=== PATIENT | female | born 1935 | race Caucasian/White ===

== ENCOUNTER 2020-02-02 12:47 | Inpatient (IN) | payer OTHER ==
[~2020-02-02] VITALS: Ht 157.5 cm; Wt 59.9 kg
--- NOTE | 2020-02-02 12:54 | NUR ---
DR Charles at the bedside for MSE.
[2020-02-02 13:17] LABS: BASOPHILS # (AUTO) 0.1 K/uL (0.0-8.0); EOSINOPHILS # (AUTO) 0.1 K/uL (0.0-0.7); EOSINOPHILS % (AUTO) 1.7 % (0.0-7.0); HEMATOCRIT 44.6 % (31.2-41.9); HEMOGLOBIN 14.5 g/dL (10.9-14.3); LYMPHOCYTES # (AUTO) 0.8 K/uL (20.0-40.0); LYMPHOCYTES % (AUTO) 12.1 % (20.5-51.5); MEAN CORPUSCULAR HEMOGLOBIN 29.1 uug (24.7-32.8); MEAN CORPUSCULAR HGB CONC 33 g/dL (32.3-35.6); MEAN CORPUSCULAR VOLUME 89.5 fL (75.5-95.3); MONOCYTES # (AUTO) 0.4 K/uL (2.0-10.0); MONOCYTES % (AUTO) 6.6 % (0.0-11.0); NEUTROPHILS # (AUTO) 5.3 K/uL (1.8-8.9); NEUTROPHILS % (AUTO) 78.6 % (38.5-71.5); PLATELET COUNT (AUTO) 174 K/uL (179-408); RED BLOOD CELL COUNT(AUTO) 4.99 MIL/uL (3.63-4.92); WHITE BLOOD COUNT (AUTO) 6.8 K/uL (3.8-11.8)
[2020-02-02 13:24] LABS: CARBON DIOXIDE 29 mmol/L (21-32); CHLORIDE 104 mmol/L (98-107); CREATININE 0.9 mg/dL (0.6-1.3); GLUCOSE 108 mg/dL (74-106); POTASSIUM 3.6 mmol/L (3.5-5.1); UREA NITROGEN, BLOOD 12 mg/dL (7-18)
[2020-02-02 13:30] LABS: ACETAMINOPHEN < 2.0 ug/mL (10-30); ALANINE AMINOTRANSFERASE 11 U/L (14-59); ALKALINE PHOSPHATASE 99 U/L (50-136); ASPARTATE AMINOTRANSFERASE 19 U/L (15-37); BILIRUBIN,DIRECT 0.3 mg/dL (0.0-0.2); BILIRUBIN,TOTAL 1.3 mg/dL (0.2-1.0); TOTAL PROTEIN, SERUM 6.7 g/dL (6.4-8.2)
[2020-02-02 13:31] LABS: ETHANOL < 3 MG/DL (0-0)
--- NOTE | 2020-02-02 13:33 | NUR ---
Lunch tray provided. Pt ate w/ moderate appetite.
[2020-02-02 14:23] LABS: *BILIRUBIN,URIN NEGATIVE (NEGATIVE); *BLOOD, URINE NEGATIVE (NEGATIVE); *COLOR,URINE YELLOW (YELLOW); *KETONES,URINE TRACE (NEGATIVE); *UROBILINOGEN,URINE 0.2 E.U./dl (NORMAL); LEUKOCYTE ESTERASE ,URINE 1+ (NEGATIVE); NITRITE, URINE NEGATIVE (NEGATIVE); PH,URINE 7.5 (5.0-8.0); UGLUCOSE NEGATIVE (NEGATIVE)
[2020-02-02 14:24] LABS: *CLARITY,URINE HAZY (CLEAR)
[2020-02-02 14:28] LABS: RBC,URINE 0-3 /HPF (0-3)
[2020-02-02 14:30] LABS: BACTERIA,URINE FEW /HPF (NONE SEEN); SQUAMOUS EPITHELIAL CELL,UR MODERATE /HPF (NONE SEEN)
[2020-02-02 14:53] LABS: *AMPHETAMINE, URINE NEGATIVE (NEGATIVE); *BARBITURATE, URINE NEGATIVE (NEGATIVE); *CANNABINOID, URINE NEGATIVE (NEGATIVE); *COCCAINE, URINE NEGATIVE (NEGATIVE); *OPIATE, URINE NEGATIVE (NEGATIVE); *PHENCYCLIDINE SCREEN,URINE NEGATIVE (NEGATIVE)
[2020-02-02] MEDS ORDERED: MAGNESIUM HYDROXIDE 30 ML LIQUID UDC PO PRN (15:45)
[2020-02-02] MEDS ORDERED: MAG HYDROX/AL HYDROX/SIMETH 30 ML LIQUID UDC PO PRN (15:45)
[2020-02-02] MEDS ORDERED: ACETAMINOPHEN 325 MG TABLET PO PRN (15:45)
--- NOTE | 2020-02-02 16:25 | NUR ---
face to face assessment done with the patien. pt presents no harm to self or others. physical assessment done. skin intact. pt continues to be confused. safety precautions implemented. pt place on a 5150 for being gravely disabled. belongings checked and list placed on chart. MD psychiatrist aware of patient being on the unit. admission orders placed.
[2020-02-02 16:50] VITALS: BP 149/68
--- NOTE | 2020-02-02 20:19 | NUR ---
Pt was restless and anxious, attempted to administer Ativan 0.5mg, Pt refused. Will re attempt. business systems developer aware.
[2020-02-02 20:34] VITALS: BP 145/68
[2020-02-02] MEDS: LORAZEPAM 0.5 MG TABLET PO PRN (23:09)
[2020-02-02] MEDS: CEphaleXIN 500 MG CAPSULE PO SCH (23:20)
--- NOTE | 2020-02-03 01:20 | NUR ---
Ativan 0.5mg administered at 2309. Pt was put to bed at 2315 and fell asleep. At approximately 0100 Pt woke up and was attempting to crawl out of bed. This typewriter assembler and FREEZER TUNNEL OPERATOR attempted to assist Pt and she became combative, kicking, screaming, and attempting to bite staff. Pt refused to listen to instruction for safety and refused redirection. plant machinist came to assist in helping Pt into radha chair for Pt and staff safety. Pt eventually calmed and is resting comfortably in the hallway under close staff supervision at this time.
--- NOTE | 2020-02-03 06:03 | NUR ---
Pt awoke at 0400 shouting for her mom and crying, angry and aggressive when redirection provided. Snacks and drinks offered and refused. Pt agreed to a shower, and she was cooperative when shower was given by 2 staff. Pt placed in radha chair for safety at this time, Pt now resting comfortably.
[2020-02-03 07:30] VITALS: BP 140/69
[2020-02-03 08:29] LABS: BILIRUBIN,TOTAL 1.2 mg/dL (0.2-1.0)
[2020-02-03] MEDS: CEphaleXIN 500 MG CAPSULE PO SCH ×2 (08:48→20:09)
--- NOTE | 2020-02-03 09:26 | NUR ---
Received patient this am yelling and restless.Totally confused , reorientation attempted with little results. Assisted with breakfast and patient needed a lot of encouragement to take medications. Patient gait unsteady and supervision provided with ambulation. VS stable. Continuing to monitor for safety. Patient noted to be combative and aggressive.
--- NOTE | 2020-02-03 13:21 | NUR ---
ESTEPHANIA Initial Discharge Plan: Patient currently lives at home with her Yfn Reeves ([phone]). Patient will be returning home upon discharge. ESTEPHANIA will continue to work with patient, family, and MD to ensure a safe and proper discharge plan.
--- NOTE | 2020-02-03 14:15 | NUR ---
ESTEPHANIA Family Contact: ESTEPHANIA spoke with patient's Yfn Reeves ([phone]) regarding treatment plan and patient's discharge plan. Yfn was concerned that due to their spiritism belief, [employer], the patient will not be compliant with taking her medications as they do not believe in such. ESTEPHANIA explained the process of a Riese if the patient refuses medications in the mental health unit. Yfn was understanding and hopes the patient will be complaint with her overall treatment. Yfn wants the patient to return back home upon discharge. ESTEPHANIA also spoke with patient's niece, Eve Aidaaj ([phone]) regarding patient's treatment and discharge plan. Yfn stated he wants Eve informed and involved. Eve wanted updated regarding patient medical status, this proposal writer transferred her to the nursing station for updates.
[2020-02-03 16:00] VITALS: BP 141/59
[2020-02-03] MEDS: busPIRone 5 MG TABLET PO SCH (17:00)
--- NOTE | 2020-02-03 17:40 | NUR ---
Patient continues to non compliant and refused to take medication this PM. Assisted to bathroom earlier and patient became combative. Continuing to monitor for safety , and encourage medication compliance. Patient remains confused, reorientation given.
[2020-02-03] MEDS: LORAZEPAM 0.5 MG TABLET PO PRN (20:09)
[2020-02-03 20:16] VITALS: BP 157/75
[2020-02-03] MEDS: DOCUSATE SODIUM 100 MG CAPSULE PO SCH (21:00)
[2020-02-03] MEDS: ATORVASTATIN 10 MG TABLET PO SCH (21:00)
[2020-02-03] MEDS ORDERED: QUETIAPINE FUMARATE 25 MG TABLET PO SCH (21:00)
--- NOTE | 2020-02-03 21:56 | NUR ---
GPS/ RECEIVED PT UP IN [place]-CHAIR. PT CONFUSE, RESTLESS, AND UNABLE TO COMPREHEND ANYTHING MENTALLY. PT NOTED REMOVING HER CLOTHING AND YELLING, KICKING. DISTRACTIVE INTERVENTION NOT EFFECTIVE, PRN ATIVAN 0.5MG GIVEN. PT HAVING VISUAL HALLUCINATION, TALKING TO PEOPLE WITH EYES CLOSE. PT UNABLE TO REDIRECT OR REINFORCE TO REALITY. ROUTINE MEDICATIONS GIVEN BUT PT TOOK ONLY THE ATB MED AND REFUSED THE REST.OFFER WATER BUT TOOK ONLY A LITTLE. PT IS UNCOOPERATIVE WITH MEDS AND CARE. Q/15 MINS HEAD COUNT WILL BE DONE AND PT STILL AWAKE.
[2020-02-04] MEDS: TEMAZEPAM 7.5 MG CAPSULE PO PRN (01:41)
--- NOTE | 2020-02-04 06:49 | NUR ---
PT WAS UP IN NIMCO-CHAIR, UNABLE TO STAY IN BED, AND FREQUENTLY TRYING TO GET OUT OF CHAIR. RESTORIL WAS GIVEN AT 0141. AND PT SLEPT UP TO 3HRS ON AND OFF. PT WAS YELLING AND CRYING, PRAYING AND CALLING ON NAMES. MENTALLY UNABLE TO REDIRECT TO REALITY.
[2020-02-04 07:30] VITALS: BP 140/66
[2020-02-04] MEDS: CEphaleXIN 500 MG CAPSULE PO SCH (09:00)
[2020-02-04] MEDS: busPIRone 5 MG TABLET PO SCH ×2 (09:00→16:52)
[2020-02-04] MEDS: DOCUSATE SODIUM 100 MG CAPSULE PO SCH ×2 (09:00→20:18)
--- NOTE | 2020-02-04 09:33 | NUR ---
ESTEPHANIA Family Contact: ESTEPHANIA spoke with patient's Yfn Reeves ([phone]) who was inquiring about what will happen now that the patient has refused some medications today. This check writer informed that the psychiatrist will be in to see her today and make a decision. This check writer will update family as soon as there is new information from the doctor.
--- NOTE | 2020-02-04 09:36 | NUR ---
ESTEPHANIA UR Note: Authorization # [id number] ESTEPHANIA called Danielle from [facility] (ph: [phone]) who stated that the top case assembler assigned to this case will be Coco Spaulding (ph: [phone]). This machine sign writer called Coco but unable to reach and left a voicemail for a return call. This machine sign writer also called [facility] (ph: [phone]) to get information for patient's after care provider/psychiatry appointments upon discharge however unable to reach and left a voicemail for a return call. Addendum: 02/04/20 at 1023 by WILLIAM BARRERA Coco Spaulding (ph: [phone]) called this machine sign writer back and stated that the patient is authorized until February 11, 2020 and no clinical review is needed until then. Coco stated that she will call this machine sign writer on February 11, 2020 in the morning for follow up clinical review.
--- NOTE | 2020-02-04 10:30 | NUR ---
Received patient this am in the radha chair. Awake, very confused. Refused to take am medications or eat and drink anything. Multiple attempts to give medications used. Patient ambulated in nicole with a walker and physical therapy. After PT patient put in the bed and is sleeping. Noted only 3 hours of sleep last night. Plan to encourage medication compliance, Theresa Huff aware of patients resistance to medications. Monitoring for safety. Anxiety also noted this morning. Reassurance, reorientation and redirection provided as needed.
--- NOTE | 2020-02-04 12:51 | NUR ---
GPS: Called and spoke with DR. Rodríguez regarding patient condition, dc Keflex and started patient with Rocephin 1G IM daily x5 days for her UTI, orders made and carried out
[2020-02-04] MEDS: CEFTRIAXONE 1 G VIAL IM SCH (14:33)
[2020-02-04 16:07] VITALS: BP 142/66
--- NOTE | 2020-02-04 18:14 | NUR ---
Patient refused to take oral medications. Patient is very confused and hallucinating visually . Constant reassurance and reorientation to situation given. Monitoring patient closely for safety , behavior escalation and encouraging fluid intake. Patient continues to yell, cry and mood is very labile. VS remain stable and no acute distress noted at this time.
[2020-02-04] MEDS: ATORVASTATIN 10 MG TABLET PO SCH (20:18)
[2020-02-04 20:39] VITALS: BP 149/63
[2020-02-04] MEDS: LORAZEPAM 0.5 MG TABLET PO PRN (21:13)
--- NOTE | 2020-02-04 23:45 | NUR ---
received to care, up in [facility] chair for safety, yelling and crying intermittently. redirection and reality orientation was attempted, but she continues to yell. oriented to name only. she refused all routine medications, but did take PRN ativan, at 2112, with much encouragement. as of 2344, she appears asleep, but continues to yell out intermittently. all needs met. monitored closely for safety. will continue to monitor closely.
--- NOTE | 2020-02-05 03:00 | NUR ---
remains agitated and restless, yelling intermittently. assisted with a shower. refused to stay in bed, but she appears to be resting in the radha chair.
--- NOTE | 2020-02-05 06:00 | NUR ---
slept 3.5 hours, total. is now awake, yelling incoherently. difficult to redirect. refused PRN medication for anxiety. currently up in radha chair at nurses station. will continue to monitor closely.
[2020-02-05 08:01] VITALS: BP 137/67
[2020-02-05] MEDS: DOCUSATE SODIUM 100 MG CAPSULE PO SCH ×2 (08:55→21:00)
[2020-02-05] MEDS: busPIRone 5 MG TABLET PO SCH ×2 (08:55→17:33)
--- NOTE | 2020-02-05 10:16 | NUR ---
ESTEPHANIA Family Contact: ESTEPHANIA spoke with patient's Yfn Reeves ([phone]) and patient's niece Eve ([phone]) who both stated that Yfn is the patient's probate conservator. Yfn faxed this mortgage underwriter the documentation of conservatorship and the copy has been placed in the patient's chart.
[2020-02-05] MEDS: CEFTRIAXONE 1 G VIAL IM SCH (13:09)
[2020-02-05] MEDS: LORAZEPAM 0.5 MG TABLET PO PRN ×2 (15:03→21:34)
--- NOTE | 2020-02-05 15:07 | NUR ---
Social Work Firearms Report (DOJ): Change Management Manager completed and submitted a DP[employer] firearms report for 5150 danger to self and others, and grave disability certification. A copy of report has been placed in patient chart.
[2020-02-05 16:00] VITALS: BP 155/64
[2020-02-05] MEDS: DIVALPROEX SPRINKLE 125 MG CAP.SPRINK PO SCH (17:33)
[2020-02-05 20:00] VITALS: BP 167/67
[2020-02-05] MEDS: ATORVASTATIN 10 MG TABLET PO SCH (21:00)
--- NOTE | 2020-02-05 23:59 | NUR ---
received to care, up in [facility] for safety, yelling and crying intermittently. redirection and reality orientation was attempted, but she continues to yell. oriented to name only. she refused all routine medications, but did take PRN ativan, at 2133, with much encouragement. as of 2358, she appears asleep, but continues to yell out intermittently. all needs met. monitored closely for safety. will continue to monitor closely.
--- NOTE | 2020-02-06 06:00 | NUR ---
slept 4.0 hours, total. is now awake, yelling intermittently. currently up in radha chair at nurses station. will continue to monitor closely.
[2020-02-06 07:30] VITALS: BP 123/49
[2020-02-06] MEDS: DOCUSATE SODIUM 100 MG CAPSULE PO SCH ×3 (09:00→20:05)
[2020-02-06] MEDS: DIVALPROEX SPRINKLE 125 MG CAP.SPRINK PO SCH ×3 (09:14→16:03)
[2020-02-06] MEDS: busPIRone 5 MG TABLET PO SCH ×2 (09:14→16:03)
[2020-02-06] MEDS: CEFTRIAXONE 1 G VIAL IM SCH (12:34)
[2020-02-06] MEDS: LORAZEPAM 0.5 MG TABLET PO PRN ×3 (13:11→20:05)
[2020-02-06 15:52] VITALS: BP 159/46
[2020-02-06] MEDS: ATORVASTATIN 10 MG TABLET PO SCH (20:05)
[2020-02-06] MEDS ORDERED: LORAZEPAM 2 MG/1 ML VIAL IM ONE (20:15)
--- NOTE | 2020-02-06 20:15 | NUR ---
DR THOMPSON WAS CALLED RE: PATIENT YELLING, SCREAMING, RESTLESS, ANXIOUS, AGITATED, SPITTING MEDICATIONS AND UNABLE TO BE REDIRECTED. RECEIVED NEW ORDERS TO ADMINISTER ATIVAN 1MG IM ONE TIME ONLY, TO ORDER LABS IN AM: CBS, BPM AND VALPROIC ACID LEVELS AND TO INCREASED DEPAKOTE FROM 125MG PO TID TO 250MG PO TID. ORDERS WERE NOTED AND CARRIED OUT. WILL [id number] TO MONITOR.
[2020-02-06 21:12] VITALS: BP 130/71
--- NOTE | 2020-02-06 22:30 | NUR ---
received to care, up in [facility] for safety, agitated, incoherent, yelling non stop, difficult to redirect. medications ans snacks were offered, but she refused, including PRN ativan, which she spit out onto the floor. she became combative with staff when assisted, so Dr Cardenas was paged, and pt was given ativan 1 mg IM, to right deltoid, per MD orders, at 2019. she continued to yell for another hour, until around 2129, when she fell asleep. as of 2229, she continues to sleep.no distress noted. will continue to monitor closely.
--- NOTE | 2020-02-07 06:00 | NUR ---
slept 6.0 hours, total. continues to sleep. no distress noted.
[2020-02-07 07:30] VITALS: BP 140/51
[2020-02-07 07:35] LABS: BASOPHILS # (AUTO) 0.1 K/uL (0.0-8.0); BASOPHILS % (AUTO) 0.9 % (0.0-2.0); EOSINOPHILS # (AUTO) 0.1 K/uL (0.0-0.7); EOSINOPHILS % (AUTO) 1.2 % (0.0-7.0); HEMATOCRIT 44.1 % (31.2-41.9); HEMOGLOBIN 14.5 g/dL (10.9-14.3); LYMPHOCYTES # (AUTO) 1.2 K/uL (20.0-40.0); LYMPHOCYTES % (AUTO) 14.5 % (20.5-51.5); MEAN CORPUSCULAR HEMOGLOBIN 29.5 uug (24.7-32.8); MEAN CORPUSCULAR HGB CONC 33 g/dL (32.3-35.6); MEAN CORPUSCULAR VOLUME 89.8 fL (75.5-95.3); MONOCYTES # (AUTO) 0.6 K/uL (2.0-10.0); MONOCYTES % (AUTO) 7.5 % (0.0-11.0); NEUTROPHILS # (AUTO) 6.1 K/uL (1.8-8.9); NEUTROPHILS % (AUTO) 75.9 % (38.5-71.5); PLATELET COUNT (AUTO) 186 K/uL (179-408); RED BLOOD CELL COUNT(AUTO) 4.91 MIL/uL (3.63-4.92)
[2020-02-07 07:53] LABS: POTASSIUM 3.9 mmol/L (3.5-5.1)
[2020-02-07] MEDS: DIVALPROEX SPRINKLE 125 MG CAP.SPRINK PO SCH ×3 (09:00→18:09)
[2020-02-07] MEDS: CEFTRIAXONE 1 G VIAL IM SCH (13:35)
[2020-02-07] MEDS: busPIRone 5 MG TABLET PO SCH ×2 (13:55→18:11)
[2020-02-07] MEDS: DOCUSATE SODIUM 100 MG CAPSULE PO SCH ×2 (13:57→20:51)
[2020-02-07 16:00] VITALS: BP 112/87
[2020-02-07] MEDS: LORAZEPAM 0.5 MG TABLET PO PRN (20:12)
[2020-02-07] MEDS: ATORVASTATIN 10 MG TABLET PO SCH (20:50)
[2020-02-07 21:06] VITALS: BP 151/70
[2020-02-07] MEDS: TEMAZEPAM 7.5 MG CAPSULE PO PRN (23:23)
[2020-02-08] MEDS: LORAZEPAM 0.5 MG TABLET PO PRN ×3 (00:29→20:45)
[2020-02-08 07:30] VITALS: BP 114/84
[2020-02-08] MEDS: DOCUSATE SODIUM 100 MG CAPSULE PO SCH ×2 (08:48→20:47)
[2020-02-08] MEDS: busPIRone 5 MG TABLET PO SCH ×2 (08:48→16:00)
[2020-02-08] MEDS: DIVALPROEX SPRINKLE 125 MG CAP.SPRINK PO SCH ×3 (08:48→16:00)
--- NOTE | 2020-02-08 10:03 | NUR ---
GPS: RECEIVED PATIENT AOX1, PATIENT ASLEEP ON BED, NO DISTRESS AT THIS TIME, WILL CONTINUE MONITOR
--- NOTE | 2020-02-08 10:54 | NUR ---
patient woke up confused, disrobing, shouting " please I need Help", patient transfered to [facility], patient still anxious and shouting while having breakfast, medication given mixed with apple sauce, will continue monitor
[2020-02-08] MEDS ORDERED: LORAZEPAM 2 MG/1 ML VIAL IM ONE (11:45)
--- NOTE | 2020-02-08 11:50 | NUR ---
GPS: EMERGENCY IM MEDICATION, PATIENT BEEN SCREEMING AND SHOUTING NON STOP, PATIENT COMBATIVE, HIT THE SET UP OPERATOR 3X IN THE SHOWER ROOM, PATIENT CONFUSED, YELLING "FATHER HELP ME PLEASE" PATIENT TRIED TO GIVE ORAL PRN PATIENT REFUSED AND SPIT IT OUT, CALLED AND SPOKE WITH DR. BORGES, ORDERS MADE AND CARRIED OUT
[2020-02-08] MEDS: CEFTRIAXONE 1 G VIAL IM SCH (12:19)
--- NOTE | 2020-02-08 13:11 | NUR ---
patient still continue shouting, screaming calling for her , her mother and father, patient confused , shouting at the nurse, disrobing
--- NOTE | 2020-02-08 14:57 | NUR ---
patient went to sleep comfortably on her gerichair
--- NOTE | 2020-02-08 17:03 | NUR ---
patient woke up, started to scream , shouting "father ...Father ...Mother..., " patients mumbles, delusional patient started to become restless, prn medication given, mixed with jello patient took it, patient started to clam down, denies any distress, will continue monitor
--- NOTE | 2020-02-08 18:17 | NUR ---
patient restless and been mumbling, patient would shout and yelling and go back to sleep, patient too sleepy for dinner, will give dinner later, no distress at this time
--- NOTE | 2020-02-08 20:45 | NUR ---
RECEIVED PATIENT IN THE HALLWAY SITTING IN A NIMCO CHAIR. SHE IS NOTED A/O X 1, SHE IS OBSERVED TALKING TO HERSELF, YELLING A TIMES, ANXIOUS AND AGITATED. PT IS UNABLE TO HAVE A MEANINGFUL CONVERSATION. PT UNABLE TO CARE FOR SELF. REFUSING V/S. PT WAS GIVEN ATIVAN 0.5MG PO PRN. ALL HER QHS MEDICATION WHERE GIVEN CRUSH IN APPLE SAUCE. INCREASED OBSERVATION, AND SAFETY AND FALL PRECAUTION ARE IN PLACE. WILL CONTINUE TO MONITOR.
[2020-02-08] MEDS: ATORVASTATIN 10 MG TABLET PO SCH (20:47)
--- NOTE | 2020-02-08 23:30 | NUR ---
PATIENT IN BED SLEEPING COMFORTABLE. WILL CONTINUE TO MONITOR.
[2020-02-09] MEDS: TEMAZEPAM 7.5 MG CAPSULE PO PRN (02:01)
--- NOTE | 2020-02-09 06:36 | NUR ---
PATIENT SLEPT FOR APPROX 4:15 HRS THROUGH THE NIGHT. CONTINUE WITH DISORGANIZED SPEECH, EASILY IRRITABLE. WILL CONTINUE TO MONITOR.
[2020-02-09 07:30] VITALS: BP 139/76
[2020-02-09] MEDS: busPIRone 5 MG TABLET PO SCH ×2 (08:41→16:05)
[2020-02-09] MEDS: DIVALPROEX SPRINKLE 125 MG CAP.SPRINK PO SCH ×3 (08:41→16:05)
[2020-02-09] MEDS: DOCUSATE SODIUM 100 MG CAPSULE PO SCH ×2 (08:42→20:28)
[2020-02-09] MEDS ORDERED: QUETIAPINE FUMARATE 25 MG TABLET PO PRN (09:15)
--- NOTE | 2020-02-09 09:57 | NUR ---
GPS: patient asleep in her room, woke up change diaper, applied zguard on affected area, patient seen by Dr. Cardenas, orders made and carried out
--- NOTE | 2020-02-09 10:59 | NUR ---
ESTEPHANIA Family Contact: ESTEPHANIA received a call from Patient's niece, Eve ([phone]) who was stating that she spoke with Dr. Cardenas this morning about the patient's behaviors and status. Eve wanted to further explain why the patient may refuse care which is due to her scientologist beliefs which this freelance writer acknowledged and understood. This freelance writer informed Eve that the doctor is aware and is also respectful but is also working on helping the patient become stable. Eve wanted to speak to the medical doctor as well which she will contact the nursing station to request.
--- NOTE | 2020-02-09 12:37 | NUR ---
followed up with manager unit ,for the consult
--- NOTE | 2020-02-09 13:02 | NUR ---
patient been calm, asleep on gerichair, patient ate breakfast, patient would mumble then went back to sleep afterwards
[2020-02-09 15:37] VITALS: BP 147/83
--- NOTE | 2020-02-09 16:50 | NUR ---
patient been calm and mostly asleep, patient had snack and transferred to bed, change diaper , patient went back to sleep, no distress at this time
--- NOTE | 2020-02-09 18:30 | NUR ---
patient been asleep, no distress at this time
[2020-02-09 20:10] VITALS: BP 142/75
[2020-02-09] MEDS: ATORVASTATIN 10 MG TABLET PO SCH (20:27)
[2020-02-09] MEDS ORDERED: QUETIAPINE FUMARATE 25 MG TABLET PO SCH (21:00)
--- NOTE | 2020-02-09 21:00 | NUR ---
RECEIVED PATIENT IN HER BED SLEEPING. SHE IS EASILY AROUSABLE. PATIENT NOTED CONFUSED, DISORGANIZED SPEECH, UNABLE TO HAVE A MEANINGFUL CONVERSATION. MOOD IS IRRITABLE, AFFECT IS FLAT. V/S STABLE AT THIS TIME. PATIENT WAS GIVEN ALL HER QHS MEDICATIONS CRUSHED IN APPLE SAUCE. TYLENOL 650MG WAS ALSO GIVEN FOR GENERALIZED DISCOMFORT. SAFETY AND FALL PRECAUTION IN PLACE. WILL CONTINUE TO MONITOR.
[2020-02-10] MEDS: LORAZEPAM 0.5 MG TABLET PO PRN (02:42)
--- NOTE | 2020-02-10 02:45 | NUR ---
Patient noted restless, fidgeting and talking to herself. Ativan 0.5mg Po PRN was given. will continue to monitor.
--- NOTE | 2020-02-10 06:26 | NUR ---
patient slept for approax 2hrs through the night. she was noted restless on-and-off, taking to herself; however, she was not yelling no aggressive/combative bx was noted during the shift. Shower given this am. will continue to monitor,
[2020-02-10 07:46] VITALS: BP 113/60
[2020-02-10] MEDS: DIVALPROEX SPRINKLE 125 MG CAP.SPRINK PO SCH ×3 (08:04→16:24)
[2020-02-10] MEDS: DOCUSATE SODIUM 100 MG CAPSULE PO SCH ×2 (08:04→20:57)
[2020-02-10] MEDS: busPIRone 5 MG TABLET PO SCH ×2 (08:05→16:24)
--- NOTE | 2020-02-10 08:55 | NUR ---
patient asleep on bed, patient restless, ate her meal even her eyes close, patient assisted with her ADLs, will continue monitor
--- NOTE | 2020-02-10 16:05 | NUR ---
SW Brief Individual Counseling: SW met with patient patient to provide individual counseling regarding patient's disorganized thought process. Patient presents with lethargic mood and congruent affect. Patient is restless and unable to engage in a meaningful conversation. Patient speech is mumbling and often times yelling. Patient is awake but eyes remain closed. SW will remain available to patient and try to engage with patient.
[2020-02-10 20:47] VITALS: BP 157/54
[2020-02-10] MEDS: ATORVASTATIN 10 MG TABLET PO SCH (20:57)
[2020-02-10] MEDS: QUETIAPINE FUMARATE 25 MG TABLET PO SCH (20:57)
[2020-02-11] MEDS: TEMAZEPAM 7.5 MG CAPSULE PO PRN (00:08)
[2020-02-11] MEDS: Z GUARD REMEDY PASTE 57 GM TUBE TOP PRN ×2 (05:42→21:49)
--- NOTE | 2020-02-11 06:08 | NUR ---
GPS: Pt. slept for 6.45 last night. Less restless although with intermittent screaming for no reason. Reality re-orientation provided. Sips of water given for hydration purposes and niki.well. Repositioned for comfort and handled gently/carefully. Will continue to monitor. No combative behavior although slightly resistant to incontinence care.
[2020-02-11 08:14] LABS: BASOPHILS # (AUTO) 0.1 K/uL (0.0-8.0); BASOPHILS % (AUTO) 0.6 % (0.0-2.0); EOSINOPHILS # (AUTO) 0.1 K/uL (0.0-0.7); HEMATOCRIT 42.6 % (31.2-41.9); HEMOGLOBIN 14.2 g/dL (10.9-14.3); LYMPHOCYTES # (AUTO) 1.6 K/uL (20.0-40.0); LYMPHOCYTES % (AUTO) 17.8 % (20.5-51.5); MEAN CORPUSCULAR HEMOGLOBIN 29.7 uug (24.7-32.8); MEAN CORPUSCULAR HGB CONC 33 g/dL (32.3-35.6); MEAN CORPUSCULAR VOLUME 88.9 fL (75.5-95.3); MONOCYTES # (AUTO) 0.8 K/uL (2.0-10.0); MONOCYTES % (AUTO) 9.3 % (0.0-11.0); NEUTROPHILS # (AUTO) 6.3 K/uL (1.8-8.9); NEUTROPHILS % (AUTO) 71.3 % (38.5-71.5); PLATELET COUNT (AUTO) 182 K/uL (179-408); RED BLOOD CELL COUNT(AUTO) 4.79 MIL/uL (3.63-4.92); WHITE BLOOD COUNT (AUTO) 8.8 K/uL (3.8-11.8)
[2020-02-11 08:28] LABS: CREATININE 1.1 mg/dL (0.6-1.3); MAGNESIUM 2.4 mg/dL (1.8-2.4); PHOSPHOROUS 4.4 mg/dL (2.5-4.9); POTASSIUM 4.7 mmol/L (3.5-5.1)
[2020-02-11] MEDS: DOCUSATE SODIUM 100 MG CAPSULE PO SCH ×2 (09:00→21:00)
[2020-02-11] MEDS: DIVALPROEX SPRINKLE 125 MG CAP.SPRINK PO SCH ×2 (09:00→13:04)
[2020-02-11] MEDS: busPIRone 5 MG TABLET PO SCH (09:00)
--- NOTE | 2020-02-11 11:35 | NUR ---
GPS: called and spoke with ivanna Fish BUN level , orders to encourage fluid intake and continue monitor the patient , will continue monitor
--- NOTE | 2020-02-11 13:07 | NUR ---
ESTEPHANIA UR Note: Authorization # [id number] ESTEPHANIA spoke with Coco Spaulding (ph: [phone]) and provided verbal clinical information regarding patient's behaviors, medication changes, and discharge planning. Coco stated that the patient will be authorized until Sunday February 16, 2020.
--- NOTE | 2020-02-11 13:09 | NUR ---
ESTEPHANIA Family Contact: SW spoke with patient's Yfn Reeves ([phone]) regarding patient's current status and discharge planning.
[2020-02-11 16:00] VITALS: BP 153/107
[2020-02-11 20:52] VITALS: BP 160/62
[2020-02-11] MEDS: QUETIAPINE FUMARATE 25 MG TABLET PO SCH (21:00)
[2020-02-11] MEDS: ATORVASTATIN 10 MG TABLET PO SCH (21:00)
[2020-02-12] MEDS: Z GUARD REMEDY PASTE 57 GM TUBE TOP PRN (06:42)
[2020-02-12 07:30] VITALS: BP 150/72
[2020-02-12] MEDS: DOCUSATE SODIUM 100 MG CAPSULE PO SCH ×2 (08:38→21:00)
[2020-02-12] MEDS ORDERED: IV NS 1000 ML 1,000 ML IV ONE (09:30)
--- NOTE | 2020-02-12 10:11 | NUR ---
Received patient up in radha chair, yelling out for family members. VS are stable. Order received for bolus of IVF to be given this am, then send urine specimen to the lab when bolus complete. IV started in right hand with a #22 gauge needle. IVF running at 100ml/hr. Patient tolerating well so far. Continuing to monitor site and patient for fluid overload. Patient is still confused but is able to open eyes and ate 100% of breakfast with assistance. No acute distress noted. Monitoring for safety and for behavior escalation.
[2020-02-12 12:14] LABS: *BILIRUBIN,URIN NEGATIVE (NEGATIVE); *BLOOD, URINE NEGATIVE (NEGATIVE); *CLARITY,URINE SLIGHTLY CLOUDY (CLEAR); *COLOR,URINE YELLOW (YELLOW); *KETONES,URINE TRACE (NEGATIVE); *UROBILINOGEN,URINE 0.2 E.U./dl (NORMAL); LEUKOCYTE ESTERASE ,URINE NEGATIVE (NEGATIVE); NITRITE, URINE NEGATIVE (NEGATIVE); UGLUCOSE NEGATIVE (NEGATIVE)
[2020-02-12 12:24] LABS: BACTERIA,URINE NONE SEEN /HPF (NONE SEEN); RBC,URINE 0-3 /HPF (0-3); SQUAMOUS EPITHELIAL CELL,UR MANY /HPF (NONE SEEN); URINE AMORPHOUS PHOSPHATES MANY /HPF; WBC,URINE 0-3 /HPF (0-3); YEAST,URINE MODERATE /HPF (NONE SEEN)
[2020-02-12 12:25] LABS: MUCUS,URINE MODERATE /LPF (0-FEW)
--- NOTE | 2020-02-12 12:35 | NUR ---
Patients IVF finished. Urine specimen obtained via straight cath. Patient tolerated the procedure well. Specimen sent to lab. Patient resting in bed at this time. No distress noted.
[2020-02-12 13:18] LABS: BASOPHILS # (AUTO) 0.1 K/uL (0.0-8.0); BASOPHILS % (AUTO) 1.1 % (0.0-2.0); EOSINOPHILS # (AUTO) 0.3 K/uL (0.0-0.7); EOSINOPHILS % (AUTO) 2.9 % (0.0-7.0); HEMATOCRIT 41.4 % (31.2-41.9); HEMOGLOBIN 13.7 g/dL (10.9-14.3); LYMPHOCYTES # (AUTO) 1.2 K/uL (20.0-40.0); MEAN CORPUSCULAR HEMOGLOBIN 29.8 uug (24.7-32.8); MEAN CORPUSCULAR HGB CONC 33 g/dL (32.3-35.6); MEAN CORPUSCULAR VOLUME 89.8 fL (75.5-95.3); MONOCYTES % (AUTO) 10.9 % (0.0-11.0); NEUTROPHILS # (AUTO) 6.2 K/uL (1.8-8.9); NEUTROPHILS % (AUTO) 71.1 % (38.5-71.5); PLATELET COUNT (AUTO) 170 K/uL (179-408); RED BLOOD CELL COUNT(AUTO) 4.61 MIL/uL (3.63-4.92); WHITE BLOOD COUNT (AUTO) 8.8 K/uL (3.8-11.8)
[2020-02-12 13:31] LABS: BILIRUBIN,TOTAL 0.4 mg/dL (0.2-1.0); CREATININE 1.2 mg/dL (0.6-1.3); MAGNESIUM 2.4 mg/dL (1.8-2.4); PHOSPHOROUS 4.7 mg/dL (2.5-4.9); POTASSIUM 4.7 mmol/L (3.5-5.1); TOTAL PROTEIN, SERUM 5.9 g/dL (6.4-8.2)
[2020-02-12 16:00] VITALS: BP 117/57
--- NOTE | 2020-02-12 18:01 | NUR ---
Patients lab values are resulted. Message left for DR. Hagan. No return call received. Patient is up to chair and ate 100% of dinner with assistance. VS are normal and no acute distress noted.Continuing to monitor for safety or physical s/s of distress of any kind. Will endorse to next shift.
--- NOTE | 2020-02-12 18:24 | NUR ---
Dr. Mcallister in at this time to see patient and to look at the labs.
[2020-02-12 20:00] VITALS: BP 120/58
[2020-02-12] MEDS ORDERED: IV 1/2NS 1000 ML 1,000 ML IV ONE (20:00)
[2020-02-12] MEDS: QUETIAPINE FUMARATE 25 MG TABLET PO SCH ×2 (21:00→21:57)
[2020-02-12] MEDS: ATORVASTATIN 10 MG TABLET PO SCH (21:00)
[2020-02-12] MEDS ORDERED: QUETIAPINE FUMARATE 25 MG TABLET PO PRN (22:15)
--- NOTE | 2020-02-12 23:00 | NUR ---
received to care, up in radha chair, at [facility], for safety. bedtime medications were initially held, due to sleeping, but her seroquel dose was given at 215, when he began yelling and screaming, for no apparent reason. she was made comfortable, fluids and snack given, and she went back to sleep. as of 2299, she remains asleep. no distress noted.
[2020-02-13] MEDS: LORAZEPAM 0.5 MG TABLET PO PRN (01:06)
--- NOTE | 2020-02-13 01:06 | NUR ---
pt is now restless, and yelling. difficult to redirect. pulling on IV tubing. IV 1/2 ns is currently infusing to right hand, per MD orders. PRN ativan was given, at this time. will continue to monitor closely.
--- NOTE | 2020-02-13 01:36 | NUR ---
appears to be asleep, and calm. IV continues to infuse.
--- NOTE | 2020-02-13 06:00 | NUR ---
slept 6.25 hours, total. continues to sleep. no distress noted.
[2020-02-13 07:07] LABS: CREATININE 1.2 mg/dL (0.6-1.3); POTASSIUM 4.8 mmol/L (3.5-5.1)
[2020-02-13 07:30] VITALS: BP 145/71
[2020-02-13] MEDS: DOCUSATE SODIUM 100 MG CAPSULE PO SCH (09:00)
--- NOTE | 2020-02-13 11:47 | NUR ---
Pt is being transfered to the medical floor, room 310, as per doctor's order. Report was given to BABITA Lazaro. All belongings returned. Pt continues to be on the hold. Paper copy of 14 day hearing provided. Addendum: 02/13/20 at 1218 by RITU MORALES RN Pt's 14 day hold was discontinued
--- NOTE | 2020-02-13 13:34 | NUR ---
Discharge Note: Patient was transferred to MedSur Unit due to Acute metabolic encephalopathy, ROBERT. Dr. Cardenas discontinued the patient's 5150 hold. Upon discharge, patient will return home with her , Yfn ([phone]). Yfn has been made aware of patient's transfer to the Medical Floor. Patient is referred for outpatient psychiatry follow ups with Dr. Chaudhary [id number] [place] [id number] ([phone]) and has an appointment scheduled on February 19, 2020 at 9am via telephone. Patient is referred for outpatient primary care physician follow ups with Dr. Peoples [address] [facility] [address] [place] [address] ([phone]) and has an appointment scheduled on February 20, 2020 at 10:30am.
--- NOTE | 2020-02-13 15:03 | NUR ---
ESTEPHANIA UR Note: Authorization # [id number] ESTEPHANIA left a voicemail for Coco Spaulding (ph: [phone]) and informed of patient's discharge from MHU and discontinuation of 5150 hold and transferred to Medical Floor.
[2020-02-17] MEDS ORDERED: FLUC100T PO (11:32)
[2020-02-17] MEDS ORDERED: VALS80TA2 PO (11:32)
[2020-02-17] MEDS ORDERED: RISP0.2515 PO (11:32)
== END 2020-02-13 11:49 | disposition short-term general hospital (02) | DRG 885 ==
LOC: ER 12:47 → GPS 15:17 → TELE1 02-09 16:35 → GPS 02-09 16:52
PROVIDERS: ADMIT Psychiatry & Neurology Psychosomatic Medicine; ATTEND Internal Medicine
DX: F25.9 Schizoaffective disorder, unspecified (principal); N17.0 Acute kidney failure with tubular necrosis; G93.41 Metabolic encephalopathy; F03.91 Unspecified dementia, unspecified severity, with behavioral disturbance; N39.0 Urinary tract infection, site not specified; R19.7 Diarrhea, unspecified; E86.0 Dehydration; E86.9 Volume depletion, unspecified; E80.6 Other disorders of bilirubin metabolism; E78.5 Hyperlipidemia, unspecified; R79.89 Other specified abnormal findings of blood chemistry; F29 Unspecified psychosis not due to a substance or known physiological condition; B35.1 Tinea unguium; M79.672 Pain in left foot; M79.671 Pain in right foot
CPT/HCPCS: 36415; 71045; 80164; 80307; 80329; 83605; 83735; 84100; 85025; 87086; 93005; A4663; C1758; G0480; G0480-TC; J0696; J2060; J3490; J7030

== ENCOUNTER 2020-02-13 12:39 | Inpatient (IN) | payer OTHER ==
[~2020-02-13] VITALS: Ht 157.5 cm; Wt 59.0 kg
[2020-02-13 12:00] VITALS: BP 154/67
--- NOTE | 2020-02-13 12:00 | NUR ---
Patient was admitted from MHU via Wheelchair with Diagnosis of ROBERT and Dehydration under Sebas Crump STITCH BONDING MACHINE DRAWER IN, Patient is awake and confused No signs of distress noted. No SOB. Afebrile. No signs of Pain or discomfort. IV site on Right hand Intact. kept clean and comfortable. Will continue to monitor.
[2020-02-13] MEDS ORDERED: Z GUARD REMEDY PASTE 57 GM TUBE TOP PRN (13:30)
[2020-02-13] MEDS ORDERED: ONDANSETRON 4 MG/2 ML VIAL IV PRN (13:30)
[2020-02-13] MEDS ORDERED: DEXTROSE 50% 50 ML DISP.SYRIN IV PRN (13:30)
[2020-02-13] MEDS ORDERED: ACETAMINOPHEN 325 MG TABLET PO PRN (13:30)
[2020-02-13] MEDS: IV D5 1/2 NS 1000 ML 1,000 ML IV PRN ×2 (13:48→23:33)
[2020-02-13] MEDS: MICAFUNGIN SODIUM 100 MG in IV NORMAL SALINE 100 ML IV SCH (14:21)
[2020-02-13 15:33] VITALS: BP 153/62
[2020-02-13 16:44] LABS: BASOPHILS # (AUTO) 0.1 K/uL (0.0-8.0); BASOPHILS % (AUTO) 1.3 % (0.0-2.0); EOSINOPHILS # (AUTO) 0.5 K/uL (0.0-0.7); EOSINOPHILS % (AUTO) 5.1 % (0.0-7.0); HEMATOCRIT 43.3 % (31.2-41.9); HEMOGLOBIN 14.2 g/dL (10.9-14.3); LYMPHOCYTES # (AUTO) 1.7 K/uL (20.0-40.0); LYMPHOCYTES % (AUTO) 17.6 % (20.5-51.5); MEAN CORPUSCULAR HEMOGLOBIN 29.7 uug (24.7-32.8); MEAN CORPUSCULAR HGB CONC 33 g/dL (32.3-35.6); MEAN CORPUSCULAR VOLUME 90.4 fL (75.5-95.3); MONOCYTES # (AUTO) 0.8 K/uL (2.0-10.0); MONOCYTES % (AUTO) 8.3 % (0.0-11.0); NEUTROPHILS # (AUTO) 6.7 K/uL (1.8-8.9); NEUTROPHILS % (AUTO) 67.7 % (38.5-71.5); PLATELET COUNT (AUTO) 179 K/uL (179-408); RED BLOOD CELL COUNT(AUTO) 4.79 MIL/uL (3.63-4.92); WHITE BLOOD COUNT (AUTO) 9.9 K/uL (3.8-11.8)
[2020-02-13 16:56] LABS: MAGNESIUM 2.3 mg/dL (1.8-2.4); PHOSPHOROUS 3.7 mg/dL (2.5-4.9)
[2020-02-13] MEDS: BLOOD SUGAR DIAGNOSTIC 1 EACH STRIP VI SCH (17:29)
[2020-02-13 20:06] VITALS: BP 154/73
--- NOTE | 2020-02-13 20:50 | NUR ---
Received pt resting in bed. Awake and confused. No acute distress noted. FLACC 0. IV on right FA #22, infusing D5 1/2 NS at 125 mL/ hr. Safety measures maintained. Will continue to monitor.
[2020-02-13] MEDS ORDERED: LORAZEPAM 2 MG/1 ML VIAL IV ONE (22:15)
--- NOTE | 2020-02-13 22:44 | NUR ---
Pt agitated, restless, and screaming. Notified Theron DNP. New order for Lorazepam 1 mg IV ONCE. Carried out order. Will continue to monitor.
[2020-02-14] MEDS: BLOOD SUGAR DIAGNOSTIC 1 EACH STRIP VI SCH ×5 (00:10→23:55)
[2020-02-14] MEDS: INSULIN REGULAR, HUMAN 300 UNIT/3 ML VIAL SQ PRN ×2 (00:10→05:28)
[2020-02-14 04:10] VITALS: BP 142/55
[2020-02-14 05:59] LABS: BASOPHILS # (AUTO) 0.2 K/uL (0.0-8.0); BASOPHILS % (AUTO) 1.4 % (0.0-2.0); EOSINOPHILS # (AUTO) 0.5 K/uL (0.0-0.7); EOSINOPHILS % (AUTO) 3.7 % (0.0-7.0); HEMATOCRIT 42.1 % (31.2-41.9); LYMPHOCYTES # (AUTO) 1.2 K/uL (20.0-40.0); LYMPHOCYTES % (AUTO) 9.9 % (20.5-51.5); MEAN CORPUSCULAR HEMOGLOBIN 29.7 uug (24.7-32.8); MEAN CORPUSCULAR HGB CONC 33 g/dL (32.3-35.6); MEAN CORPUSCULAR VOLUME 89.1 fL (75.5-95.3); MONOCYTES % (AUTO) 8.4 % (0.0-11.0); NEUTROPHILS # (AUTO) 9.5 K/uL (1.8-8.9); NEUTROPHILS % (AUTO) 76.6 % (38.5-71.5); PLATELET COUNT (AUTO) 187 K/uL (179-408); RED BLOOD CELL COUNT(AUTO) 4.73 MIL/uL (3.63-4.92); WHITE BLOOD COUNT (AUTO) 12.4 K/uL (3.8-11.8)
[2020-02-14 06:15] LABS: BILIRUBIN,TOTAL 1.1 mg/dL (0.2-1.0); CREATININE 0.9 mg/dL (0.6-1.3); MAGNESIUM 2.1 mg/dL (1.8-2.4); PHOSPHOROUS 3.5 mg/dL (2.5-4.9); POTASSIUM 4.2 mmol/L (3.5-5.1)
[2020-02-14 06:27] LABS: THYROID STIMULATING HORMONE 3.101 mIU/mL (0.358-3.740)
--- NOTE | 2020-02-14 07:45 | NUR ---
Received patient in bed, confused, restless. No signs of distress. All needs met. Safety and fall prevention in place. Call light in reach. Bed in low and locked position with bed alarm on. Will continue to monitor.
[2020-02-14] MEDS: IV D5 1/2 NS 1000 ML 1,000 ML IV PRN ×2 (09:28→21:00)
--- NOTE | 2020-02-14 10:00 | NUR ---
Spoke to Eve Peña the [place] who stated that the patient has no medication or medical history of illness prior to this admission.
[2020-02-14] MEDS: MICAFUNGIN SODIUM 100 MG in IV NORMAL SALINE 100 ML IV SCH (13:21)
[2020-02-14 16:13] VITALS: BP 128/91
--- NOTE | 2020-02-14 18:02 | NUR ---
Patient in bed, confused. No signs of distress. All needs met throughout the shift. Safety and fall prevention in place. call light in reach. Bed in low and locked position. Will report to oncoming nurse.
[2020-02-14 20:37] VITALS: BP 90/71
--- NOTE | 2020-02-14 23:35 | NUR ---
intake and output being monitored Addendum: 02/14/20 at 2335 by JOSE COOPER RN Amended: Tracie alvarado. Addendum: 02/14/20 at 2336 by JOSE COOPER RN Amended: Tracie alvarado. Addendum: 02/14/20 at 2338 by JOSE COOPER RN Amended: Links added.
--- NOTE | 2020-02-14 23:36 | NUR ---
keeping the patient cleaned and turned and off loading of bilateral heels Addendum: 02/14/20 at 2336 by JOSE COOPER RN Amended: Links added. Addendum: 02/14/20 at 2338 by JOSE COOPER RN Amended: Links added.
--- NOTE | 2020-02-14 23:37 | NUR ---
lab values being monitored and being corrected if needed Addendum: 02/14/20 at 2338 by JOSE COOPER RN Amended: Links added.
--- NOTE | 2020-02-15 | NUR ---
sleeping comfortably , arousable to light touch , no distress
[2020-02-15 04:00] VITALS: BP 115/68
--- NOTE | 2020-02-15 05:28 | NUR ---
SLEEPING COMFORTABLY , AROUSABLE , IV RUNNING D5 1/2 NS AT 125 ML
[2020-02-15 05:51] LABS: BASOPHILS # (AUTO) 0.1 K/uL (0.0-8.0); BASOPHILS % (AUTO) 0.8 % (0.0-2.0); EOSINOPHILS # (AUTO) 0.4 K/uL (0.0-0.7); HEMATOCRIT 41.5 % (31.2-41.9); HEMOGLOBIN 13.9 g/dL (10.9-14.3); LYMPHOCYTES # (AUTO) 1.4 K/uL (20.0-40.0); LYMPHOCYTES % (AUTO) 13.2 % (20.5-51.5); MEAN CORPUSCULAR HEMOGLOBIN 29.6 uug (24.7-32.8); MEAN CORPUSCULAR HGB CONC 34 g/dL (32.3-35.6); MEAN CORPUSCULAR VOLUME 88.6 fL (75.5-95.3); MONOCYTES # (AUTO) 0.8 K/uL (2.0-10.0); MONOCYTES % (AUTO) 8.2 % (0.0-11.0); NEUTROPHILS # (AUTO) 7.6 K/uL (1.8-8.9); NEUTROPHILS % (AUTO) 73.8 % (38.5-71.5); PLATELET COUNT (AUTO) 194 K/uL (179-408); RED BLOOD CELL COUNT(AUTO) 4.68 MIL/uL (3.63-4.92); WHITE BLOOD COUNT (AUTO) 10.3 K/uL (3.8-11.8)
[2020-02-15 05:54] LABS: CREATININE 0.8 mg/dL (0.6-1.3); PHOSPHOROUS 3.4 mg/dL (2.5-4.9); POTASSIUM 3.5 mmol/L (3.5-5.1)
[2020-02-15] MEDS: IV D5 1/2 NS 1000 ML 1,000 ML IV PRN ×2 (06:11→18:33)
[2020-02-15 08:00] VITALS: BP 160/63
--- NOTE | 2020-02-15 08:00 | NUR ---
PT new iv restarted on right upper arm #22 gauge. Secondary to piv was infiltrated. Applied ice. Pt confused. Bed Alarm on Pt skin is tenting. Aspiration and Fall precautions implemented. Call light is within reach.
[2020-02-15] MEDS: BLOOD SUGAR DIAGNOSTIC 1 EACH STRIP VI SCH ×3 (09:18→17:25)
[2020-02-15] MEDS: HYDROCODONE/APAP 5-325MG TABLET PO PRN (09:22)
[2020-02-15 12:00] VITALS: BP 109/54
[2020-02-15] MEDS: MICAFUNGIN SODIUM 100 MG in IV NORMAL SALINE 100 ML IV SCH (13:16)
[2020-02-15 16:00] VITALS: BP 122/98
--- NOTE | 2020-02-15 18:30 | NUR ---
Restart IV again on right hand #22 gauge ivf infusing as ordered. Pt had poor appetite this shift. Pt had large BM in afternoon. Call light is within reach.
--- NOTE | 2020-02-15 19:30 | NUR ---
RECEIVED PT CONFUSED. PT NEEDS REORIENTATION. IN NO ACUTE DISTRESS. SAFETY AND COMFORT PROVIDED. WILL CONTINUE TO MONITOR.
[2020-02-15 20:06] VITALS: BP 175/80
[2020-02-15] MEDS: CLONIDINE HCL 0.1 MG TABLET PO PRN (21:57)
[2020-02-15 23:57] VITALS: BP 139/86
[2020-02-16] MEDS: BLOOD SUGAR DIAGNOSTIC 1 EACH STRIP VI SCH ×5 (00:04→23:32)
[2020-02-16 04:00] VITALS: BP 163/82
[2020-02-16] MEDS: IV D5 1/2 NS 1000 ML 1,000 ML IV PRN (04:23)
--- NOTE | 2020-02-16 04:30 | NUR ---
BRIANNE OF THE PT CALLED AND WANTS UPDATE. BRIANNE SAID TO INFORM THE DOCTOR TO CALL HER . PT IN NO ACUTE DISTRESS. WILL CONTINUE TO MONITOR.
[2020-02-16] MEDS: CLONIDINE HCL 0.1 MG TABLET PO PRN (05:58)
--- NOTE | 2020-02-16 06:06 | NUR ---
PT SLEPT INTERMITTENTLY. PT IN NO ACUTE DISTRESS. PRESCRIBED MEDICATION GIVEN AND PT TOLERATED IT WELL. AT 2116H DR. BRAVO ORDERED CLONIDINE 0.1MG PO Q1H PRN FOR SBP>160. CLONIDINE GIVEN TWICE FOR 175/80 BP AND 163/82. BP WENT DOWN TO WITHIN NORMAL LIMIT AFTER FEW HOURS. SAFETY AND COMFORT PROVIDED. WILL ENDORSE TO INCOMING NURSE FOR CONTINUITY OF CARE.
[2020-02-16 06:12] LABS: BASOPHILS # (AUTO) 0.1 K/uL (0.0-8.0); BASOPHILS % (AUTO) 1.4 % (0.0-2.0); EOSINOPHILS # (AUTO) 0.5 K/uL (0.0-0.7); EOSINOPHILS % (AUTO) 6.7 % (0.0-7.0); HEMATOCRIT 40.4 % (31.2-41.9); HEMOGLOBIN 13.5 g/dL (10.9-14.3); LYMPHOCYTES # (AUTO) 1.5 K/uL (20.0-40.0); LYMPHOCYTES % (AUTO) 18.5 % (20.5-51.5); MEAN CORPUSCULAR HEMOGLOBIN 29.8 uug (24.7-32.8); MEAN CORPUSCULAR HGB CONC 33 g/dL (32.3-35.6); MEAN CORPUSCULAR VOLUME 89.2 fL (75.5-95.3); MONOCYTES # (AUTO) 0.7 K/uL (2.0-10.0); MONOCYTES % (AUTO) 8.2 % (0.0-11.0); NEUTROPHILS # (AUTO) 5.2 K/uL (1.8-8.9); NEUTROPHILS % (AUTO) 65.2 % (38.5-71.5); PLATELET COUNT (AUTO) 185 K/uL (179-408); RED BLOOD CELL COUNT(AUTO) 4.53 MIL/uL (3.63-4.92)
[2020-02-16 06:28] LABS: CREATININE 0.9 mg/dL (0.6-1.3); PHOSPHOROUS 3.2 mg/dL (2.5-4.9); POTASSIUM 3.4 mmol/L (3.5-5.1)
[2020-02-16 06:40] VITALS: BP 148/60
--- NOTE | 2020-02-16 08:00 | NUR ---
Pt is more awake and alert. x 2. Spoke with GUERO (DPOA) and ENEIDA (niece) refusing to have Diflucan to be given secondary to family believes that pt is having an allergic reaction to medication. Explained to family that pt has UTI and doctor recommends diflucan. Family still continues to insist not to have medication not given. Will notify .
[2020-02-16] MEDS: FLUCONAZOLE 100 MG TABLET PO SCH (08:07)
--- NOTE | 2020-02-16 10:00 | NUR ---
Dr evans notified family refusing diflucan. Gave number of family to DR evans give an update to family.
[2020-02-16] MEDS: VALSARTAN 80 MG TABLET PO SCH (10:04)
[2020-02-16] MEDS: HYDROCODONE/APAP 5-325MG TABLET PO PRN (11:15)
[2020-02-16 13:04] VITALS: BP 134/57
[2020-02-16] MEDS ORDERED: POTASSIUM CHLORIDE 20 MEQ TAB.PRT.SR PO ONE (13:30)
[2020-02-16 15:16] VITALS: BP 114/63
[2020-02-16] MEDS: LORAZEPAM 2 MG/1 ML VIAL IV PRN ×2 (15:25→22:19)
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
--- NOTE | 2020-02-16 15:30 | NUR ---
Pt had a tele conference and evaluation with DR WALTERS and DR Cardenas.
--- NOTE | 2020-02-16 17:00 | NUR ---
Pt is more calm. Ativan effective. Unable to restart IV. Pt would need a midline. Extermination Supervisor notified and midline nurse would be here in 1-2 hrs.
--- NOTE | 2020-02-16 19:30 | NUR ---
RECEIVED PT AWAKE, ALERT AND ORIENTEDX1. PT IN NO ACUTE RESPIRATORY DISTRESS. SAFETY AND COMFORT PROVIDED. WILL CONTINUE TO MONITOR.
[2020-02-16 20:20] VITALS: BP 113/48
[2020-02-16] MEDS ORDERED: MICAFUNGIN SODIUM 100 MG in IV NORMAL SALINE 100 ML IV SCH (21:00)
[2020-02-16] MEDS: risperiDONE 0.25 MG TABLET PO SCH (21:12)
--- NOTE | 2020-02-16 23:48 | NUR ---
PT WAS GIVEN ATIVAN AT 2219H. PT WAS RESTLESS, ANXIOUS AND TRYING TO GET OUT OF THE BED. PT IN NO ACUTE RESPIRATORY DISTRESS. SAFETY PROVIDED. PT NOW CALM AND SLEEPING. WILL CONTINUE TO MONITOR.
[2020-02-17 04:42] VITALS: BP 120/48
[2020-02-17] MEDS: BLOOD SUGAR DIAGNOSTIC 1 EACH STRIP VI SCH ×2 (05:47→12:07)
--- NOTE | 2020-02-17 06:12 | NUR ---
PT SLEPT INTERMITTENTLY. PT IN NO ACUTE DISTRESS. IV INTACT. PRESCRIBED MEDICATION GIVEN AND PT TOLERATED IT WELL. SAFETY AND COMFORT PROVIDED. PT TURNED Q2H. WILL ENDORSE TO INCOMING NURSE FOR CONTINUITY OF CARE.
[2020-02-17 06:23] LABS: CREATININE 0.9 mg/dL (0.6-1.3); MAGNESIUM 2.1 mg/dL (1.8-2.4); POTASSIUM 4.6 mmol/L (3.5-5.1)
[2020-02-17 06:31] LABS: BASOPHILS # (AUTO) 0.1 K/uL (0.0-8.0); BASOPHILS % (AUTO) 1.4 % (0.0-2.0); HEMOGLOBIN 14.4 g/dL (10.9-14.3); LYMPHOCYTES # (AUTO) 1.6 K/uL (20.0-40.0); MONOCYTES # (AUTO) 0.7 K/uL (2.0-10.0); MONOCYTES % (AUTO) 9.1 % (0.0-11.0)
[2020-02-17 06:49] LABS: EOSINOPHILS # (AUTO) 0.5 K/uL (0.0-0.7); EOSINOPHILS % (AUTO) 6.7 % (0.0-7.0); HEMATOCRIT 43.5 % (31.2-41.9); LYMPHOCYTES % (AUTO) 18.9 % (20.5-51.5); MEAN CORPUSCULAR HEMOGLOBIN 29.6 uug (24.7-32.8); MEAN CORPUSCULAR HGB CONC 33 g/dL (32.3-35.6); MEAN CORPUSCULAR VOLUME 89.4 fL (75.5-95.3); NEUTROPHILS # (AUTO) 5.3 K/uL (1.8-8.9); NEUTROPHILS % (AUTO) 63.9 % (38.5-71.5); RED BLOOD CELL COUNT(AUTO) 4.87 MIL/uL (3.63-4.92); WHITE BLOOD COUNT (AUTO) 8.2 K/uL (3.8-11.8)
[2020-02-17 06:51] LABS: PLATELET COUNT (AUTO) 246 K/uL (179-408)
[2020-02-17] MEDS: risperiDONE 0.25 MG TABLET PO SCH (08:41)
[2020-02-17] MEDS: VALSARTAN 80 MG TABLET PO SCH (08:48)
[2020-02-17] MEDS ORDERED: FLUC100T PO (11:32)
[2020-02-17] MEDS ORDERED: VALS80TA2 PO (11:32)
[2020-02-17] MEDS ORDERED: RISP0.2515 PO (11:32)
[2020-02-17 11:39] VITALS: BP 104/53
[2020-02-17] MEDS: FLUCONAZOLE 100 MG TABLET PO SCH (11:55)
[2020-02-17] MEDS ORDERED: risperiDONE 0.25 MG TABLET PO SCH (13:00)
[2020-02-17] MEDS ORDERED: OLANZAPINE ZYDIS 5 MG TAB.RAPDIS SL PRN (14:15)
[2020-02-17 15:27] VITALS: BP 144/57
--- NOTE | 2020-02-17 15:30 | NUR ---
Pt is in no acute distress. Discharge instructions given to GUERO . Guero verbalized understanding. Gave prescription for abx. Home health set up by transplant case manager for patient. Pt was [facility] upon car transfer. SON and to take care of pt at home. Midline d/c on right brachial. Pt is to follow up with primary doctor within 1 week.
== END 2020-02-17 17:00 | disposition home health service (06) | DRG 757 ==
LOC: MEDSURG3 12:39
PROVIDERS: ADMIT Hospitalist; ATTEND Nurse Practitioner Acute Care
PROC: 05HY33Z Insertion of Infusion Device into Upper Vein, Percutaneous Approach (ICD-10-PCS; principal; 2020-02-16)
DX: B37.49 Other urogenital candidiasis (principal); N17.0 Acute kidney failure with tubular necrosis; G93.41 Metabolic encephalopathy; E43 Unspecified severe protein-calorie malnutrition; F05 Delirium due to known physiological condition; E86.0 Dehydration; F41.9 Anxiety disorder, unspecified; I10 Essential (primary) hypertension; F03.90 Unspecified dementia, unspecified severity, without behavioral disturbance, psychotic disturbance, mood disturbance, and anxiety; E88.09 Other disorders of plasma-protein metabolism, not elsewhere classified; Z68.23 Body mass index [BMI] 23.0-23.9, adult; F25.0 Schizoaffective disorder, bipolar type; D72.829 Elevated white blood cell count, unspecified
CPT/HCPCS: 36415; 70450; 71045; 83735; 84100; 84443; 85025; 85730; 87040; G0378; J1815; J2060; J2248; J3490; J7040